=== PATIENT | female | born 1970 | race African-American/Black ===

== ENCOUNTER 2016-10-29 00:38 | Emergency (ER) | payer BC ==
[~2016-10-29] VITALS: Ht 162.6 cm; Wt 108.4 kg
[~2016-10-29 00:38] MED LIST: AMBIEN5 MG PO; BENADRYL ALLERG25 M1 PO; COLACE100 MG PO; CYCLOBENZAPRINE5 MG PO; CYMBALTA PO; DULCOLAX5 MG PO; ELA25 PO; LAC PO; LEVOFLOXACIN500 M1 PO; LEXAPRO20 MG PO; MS CONTIN30 MG PO; NOR10T PO; PHECL PO
[2016-10-29 02:32] LABS: BASOPHIL % 1.7 % (0-2); PLATELET COUNT 290 x10^3mcL (130-400)
[2016-10-29 02:34] LABS: microscopic required? NO
[2016-10-29 02:34] LABS: RED CELL DISTRIBUTION WIDTH 14.7 % (11.5-14.5)
[2016-10-29 02:39] LABS: CALCIUM 9.3 mg/dL (8.5-10.1); CREATININE SERUM 1.3 mg/dL (0.6-1.0); POTASSIUM SERUM 4.3 mmol/L (3.5-5.1)
[2016-10-29 02:43] LABS: ALBUMIN 3.9 g/dL (3.4-5.0); BILIRUBIN TOTAL 0.47 mg/dL (0.20-1.00); TOTAL PROTEIN, SERUM 8.1 g/dL (6.4-8.2)
[2016-10-29 02:48] LABS: urine erythrocyte NEGATIVE (NEGATIVE)
[2016-10-29 05:14] VITALS: BP 162/86
== END 2016-10-29 05:14 | disposition home or self-care (01) ==
LOC: ED 00:38
PROVIDERS: Emergency Medicine
DX: M79.1 Myalgia (principal); R11.2 Nausea with vomiting, unspecified; J45.909 Unspecified asthma, uncomplicated; E11.9 Type 2 diabetes mellitus without complications; G43.909 Migraine, unspecified, not intractable, without status migrainosus; M13.80 Other specified arthritis, unspecified site
CPT/HCPCS: 82962; J1815; J1885; J2270; J2405; J7030; Q0162